=== PATIENT | male | born 1955 | race Caucasian/White ===

== ENCOUNTER 2018-04-18 08:48 | Emergency (ER) | payer OTHER, MEDICAID ==
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
[2018-04-18 10:24] VITALS: BP 130/86
== END 2018-04-18 10:12 | disposition home or self-care (01) ==
LOC: EDUNIT#
DX: S43.401A Unspecified sprain of right shoulder joint, initial encounter (principal); S80.02XA Contusion of left knee, initial encounter; Y92.410 Unspecified street and highway as the place of occurrence of the external cause; V03.19XA Pedestrian with other conveyance injured in collision with car, pick-up truck or van in traffic accident, initial encounter; E11.9 Type 2 diabetes mellitus without complications; I11.0 Hypertensive heart disease with heart failure; I50.9 Heart failure, unspecified; Z89.511 Acquired absence of right leg below knee; Z89.512 Acquired absence of left leg below knee; Z96.5 Presence of tooth-root and mandibular implants; Z87.891 Personal history of nicotine dependence

== ENCOUNTER 2018-08-31 14:39 | Emergency (ER) | payer MEDICAID, OTHER ==
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
[2018-08-31 17:02] VITALS: BP 126/79
== END 2018-08-31 17:00 | disposition home or self-care (01) ==
LOC: EDUNIT#
DX: S50.01XA Contusion of right elbow, initial encounter (principal); S20.219A Contusion of unspecified front wall of thorax, initial encounter; I11.0 Hypertensive heart disease with heart failure; E11.9 Type 2 diabetes mellitus without complications; W05.0XXA Fall from non-moving wheelchair, initial encounter; Z89.511 Acquired absence of right leg below knee; Z89.512 Acquired absence of left leg below knee; Z79.4 Long term (current) use of insulin; Z99.3 Dependence on wheelchair
CPT/HCPCS: 71046; 73080; 99284; A4565

== ENCOUNTER 2018-11-30 13:43 | Emergency (ER) | payer OTHER ==
--- NOTE | 2018-11-30 13:54 | EDPHY ---
H & P Stated Complaint: Fell out of wheel chair - injury to right arm Time Seen by Provider: 11/30/18 13:52 HPI/ROS: HPI CHIEF COMPLAINT: Right arm pain. HISTORY OF PRESENT ILLNESS: This patient very pleasant 63-year-old male, he had a fall out of his mechanical wheelchair. He states his wheelchair was going down a ramp and he fell out of a landing on his right hand right forearm. Complains of right lateral forearm pain. Denies head strike, denies neck pain , denies chest pain or shortness of breath con denies LOC. Main complaint right lateral forearm pain. Patient was returning from the store if the bought his krishnan for her birthday. Past Medical History: Diabetes, morbid obesity, BPH, hyperlipidemia, hypertension Past Surgical History:Bilateral BKA Social History: Denies daily use of drugs alcohol tobacco. Family History: Noncontributory ROS REVIEW OF SYSTEMS: 10 Systems were reviewed and negative with the exception of the elements mentioned in the history of present illness. Exam Constitutional triage nursing summary reviewed, vital signs reviewed, awake/ alert. Eyes normal conjunctivae and sclera, EOMI, PERRLA. HENT normal inspection, atraumatic, moist mucus membranes, no epistaxis, neck supple/ no meningismus, no raccoon eyes. Respiratory clear to auscultation bilaterally, normal breath sounds, no respiratory distress, no wheezing. Cardiovascular rate normal, regular rhythm, no murmur, no edema, distal pulses normal. Gastrointestinal soft, non-tender, no rebound, no guarding, normal bowel sounds, no distension, no pulsatile mass. Genitourinary no CVA tenderness. Musculoskeletal right upper extremity: Good distal pulse, good cap refill, good manager of application development strength, mild tender palpation mid forearm. Also abrasion over the dorsum of the right hand specifically 4th digit. Bilateral BKA prosthetics in place. no midline vertebral tenderness, full range of motion, no calf swelling, no tenderness of extremities, no meningismus, good pulses, neurovascularly intact. Skin pink, warm, & dry, no rash, skin atraumatic. Neurologic awake, alert and oriented x 3, AAOx3, moves all 4 extremities equally, motor intact, sensory intact, CN II-XII intact, normal cerebellar, normal vision, normal speech. Psychiatric normal mood/affect. Heme/Lymph/Immune no lymphadenopathy. Differential Diagnosis: Includes but is not limited to in a particular order right forearm fracture, right hand contusion, right hand abrasion, soft tissue injury Medical Decision Making: Plan for this patient x-ray right forearm x-ray right hand, ice pack, and re-evaluate. Re-evaluation: Patient's hand and forearm x-ray reviewed by myself. The forearm x-ray does not show any acute fracture. The hand x-ray shows a numerous findings, the patient reports to me that the 2nd digit distal aspect is always flexed as he has had a previous injury to that additionally his 1st digit base of the thumb he states that his joint is "messed up or crushed". He does report to me that his 4th digit distal aspect flexed in position is new for him. This could be concerning for a new extensor tendon injury. The patient be splinted for this, he will need to follow up with Hand surgery. He understands this and is comfortable this plan. The patient's hand has a chronic deformity of the index finger distal aspect with a distal aspect flexed, however the 4th digit distal aspect is flexed indicating most likely a extensor tendon avulsion. Plan will be for finger splint, and Hand surgery follow-up. The patient understands this and understands he needs to follow up with them. On his wrist exam the patient has some mild tenderness over the distal radius he has no tenderness or swelling over did triquetrum. The patient reports to me that his triquetrum on his wrist is always in this position. He has had this chronically since he states he was in college. He has no focal tenderness over this. 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 - Social History Smoking Status: Former smoker Constitutional: Initial Vital Signs Temperature (C) 37.7 C 11/30/18 13:46 Heart Rate 89 11/30/18 13:46 Respiratory Rate 16 11/30/18 13:46 Blood Pressure 148/80 H 11/30/18 13:46 O2 Sat (%) 90 L 11/30/18 13:46 O2 Delivery Mode Room Air Allergies/Adverse Reactions: metformin Allergy (Verified 08/31/18 14:42) Hives DEMEROL Allergy (Uncoded 08/31/18 14:42) Hives NUTS Allergy (Uncoded 08/31/18 14:42) VEGGIES Allergy (Uncoded 08/31/18 14:42) Home Medications: Medication Instructions Recorded Atenolol 25 mg PO QID 08/21/12 Atorvastatin Calcium [Lipitor 40 40 mg PO HS 08/21/12 mg (*)] Febuxostat [Uloric] 80 mg PO DAILY 08/21/12 Tamsulosin HCl [Flomax 0.4 MG (*)] 0.8 mg PO DAILY18 08/21/12 Acetaminophen [Tylenol ES 500 mg 500 mg PO DAILY PRN 05/07/16 (*)] Fluticasone Nasal [Flonase Nasal 2 sprays NASAL DAILY 05/07/16 [place]] Insulin Regular Human [Humulin R 20 unit SC BID@,18 05/07/16 100 units/ml (*)] Insulin Regular Human [Humulin R 25 unit SC BID@,05/07/16 100 units/ml (*)] Losartan Potassium [Cozaar 50 mg 100 mg PO DAILY 05/07/16 (*)] Omeprazole [Prilosec 20 mg] 20 mg PO BID 05/07/16 Sertraline HCl [Zoloft 100mg (*)] 100 mg PO DAILY 05/07/16 amLODIPine BESYLATE [Norvasc 10 mg 10 mg PO DAILY 05/07/16 (*)] oxyCODONE IR [Oxycodone Ir (*)] 5 mg PO Q6H 05/07/16 Magnesium Hydroxide [Milk of 30 ml PO DAILY PRN #0 udcup 05/10/16 [place]es[place] (*)] Methocarbamol [Robaxin 750 mg (*)] 750 mg PO TID PRN #30 tab 05/10/16 Patch Removal 1 ea TD DAILY21 #0 patch 05/10/16 Polyethylene Glycol 3350 [Miralax 17 gm PO DAILY PRN #0 pkt 05/10/16 17 gm (*)] Sennosides/Docusate Sodium 1 - 2 tab PO BID #0 tab 05/10/16 [Senokot-S] Medical Decision Making - Diagnostics Imaging Results: Imaging Impressions Forearm X-Ray 11/30/18 13:48 Impression: 1. Chronic subluxations are suspected involving the right first and second MCP joint. 2. Flexion of the second and fourth DIP joints right hand. Consider extensor tendon avulsions. 3. Dorsal positioning of the triquetrum on lateral view of the right hand. Associated fracture is difficult to exclude. If the patient is symptomatic in this area, consider further characterization with CT imaging as clinically directed. 4. No acute fracture about the right forearm. Hand X-Ray 11/30/18 13:48 Impression: 1. Chronic subluxations are suspected involving the right first and second MCP joint. 2. Flexion of the second and fourth DIP joints right hand. Consider extensor tendon avulsions. 3. Dorsal positioning of the triquetrum on lateral view of the right hand. Associated fracture is difficult to exclude. If the patient is symptomatic in this area, consider further characterization with CT imaging as clinically directed. 4. No acute fracture about the right forearm. Departure - Departure Disposition: Home, Routine, Self-Care Clinical Impression: Injury of extensor tendon of hand Condition: Good Instructions: Finger Sprain (ED) Additional Instructions: 1. Please follow up with Hand surgery. You have a tendon injury of her 4th digit. 2. Stay in your splint. 3. Call and make a follow-up appoint with Hand surgery. Referrals: Patient,NotPresent [Unknown] - As per Instructions Watson Wong MD [Medical Doctor] - As per Instructions
[2018-11-30 16:09] VITALS: BP 132/84
== END 2018-11-30 16:09 | disposition home or self-care (01) ==
LOC: EDUNIT#
DX: S66.303A Unspecified injury of extensor muscle, fascia and tendon of left middle finger at wrist and hand level, initial encounter (principal); W05.0XXA Fall from non-moving wheelchair, initial encounter; E11.9 Type 2 diabetes mellitus without complications; I10 Essential (primary) hypertension; E78.5 Hyperlipidemia, unspecified; Z79.4 Long term (current) use of insulin
CPT/HCPCS: 73090; 73130; 99283; L3925